=== PATIENT | male | born 1970 | race Caucasian/White ===

== ENCOUNTER 2016-03-19 17:42 | Emergency (ER) | payer MEDICARE | END 2016-03-19 19:42 | disposition home or self-care (01) | LOC: D.ER 17:42 | DX: M54.5 Low back pain (principal); M54.10 Radiculopathy, site unspecified; I50.9 Heart failure, unspecified; I10 Essential (primary) hypertension ==

== ENCOUNTER 2016-04-02 19:01 | Emergency (ER) | payer MEDICARE | END 2016-04-02 20:25 | disposition home or self-care (01) | LOC: D.ER 19:01 | DX: M54.5 Low back pain (principal); I10 Essential (primary) hypertension ==

== ENCOUNTER 2016-04-07 19:29 | Emergency (ER) | payer MEDICARE | END 2016-04-07 23:06 | disposition home or self-care (01) | LOC: D.ER 19:29 | DX: M54.5 Low back pain (principal); I10 Essential (primary) hypertension ==

== ENCOUNTER 2016-04-11 13:29 | Emergency (ER) | payer MEDICARE | END 2016-04-11 16:02 | disposition home or self-care (01) | LOC: D.ER 13:29 | DX: M54.5 Low back pain (principal); I10 Essential (primary) hypertension ==

== ENCOUNTER 2016-04-16 15:21 | Emergency (ER) | payer MEDICARE | END 2016-04-16 18:14 | disposition home or self-care (01) | LOC: D.ER 15:21 | DX: M54.5 Low back pain (principal); I10 Essential (primary) hypertension; E78.5 Hyperlipidemia, unspecified ==

== ENCOUNTER 2016-05-03 10:19 | Emergency (ER) | payer MEDICARE | END 2016-05-03 12:25 | disposition home or self-care (01) | LOC: D.ER 10:19 | DX: M54.30 Sciatica, unspecified side (principal); S39.012A Strain of muscle, fascia and tendon of lower back, initial encounter; X58.XXXA Exposure to other specified factors, initial encounter; Y93.9 Activity, unspecified; Y92.89 Other specified places as the place of occurrence of the external cause; M62.830 Muscle spasm of back; I10 Essential (primary) hypertension ==

== ENCOUNTER 2016-05-11 21:38 | Emergency (ER) | payer MEDICARE | END 2016-05-11 23:45 | disposition home or self-care (01) | LOC: D.ER 21:38 | DX: M54.5 Low back pain (principal); I10 Essential (primary) hypertension ==

== ENCOUNTER 2016-06-03 05:48 | Emergency (ER) | payer MEDICARE | END 2016-06-03 06:40 | disposition home or self-care (01) | LOC: D.ER 05:48 | DX: M54.16 Radiculopathy, lumbar region (principal); G89.29 Other chronic pain; I10 Essential (primary) hypertension ==

== ENCOUNTER 2016-06-03 12:05 | Emergency (ER) | payer MEDICARE | END 2016-06-03 15:36 | disposition home or self-care (01) | LOC: D.ER 12:05 | DX: M54.5 Low back pain (principal); G89.29 Other chronic pain; M54.40 Lumbago with sciatica, unspecified side; S39.012A Strain of muscle, fascia and tendon of lower back, initial encounter; M62.830 Muscle spasm of back; I10 Essential (primary) hypertension ==

== ENCOUNTER 2016-06-06 13:41 | Emergency (ER) | payer MEDICARE | END 2016-06-06 16:47 | disposition home or self-care (01) | LOC: D.ER 13:41 | DX: M54.5 Low back pain (principal); M54.10 Radiculopathy, site unspecified; I10 Essential (primary) hypertension; F17.200 Nicotine dependence, unspecified, uncomplicated ==

== ENCOUNTER 2016-06-11 11:42 | Emergency (ER) | payer MEDICARE | END 2016-06-11 14:10 | disposition home or self-care (01) | LOC: D.ER 11:42 | DX: M54.5 Low back pain (principal); M62.838 Other muscle spasm; S39.012A Strain of muscle, fascia and tendon of lower back, initial encounter; X58.XXXA Exposure to other specified factors, initial encounter; Y93.89 Activity, other specified; Y92.89 Other specified places as the place of occurrence of the external cause; I10 Essential (primary) hypertension ==

== ENCOUNTER 2016-06-23 17:21 | Emergency (ER) | payer MEDICARE | END 2016-06-23 18:24 | disposition home or self-care (01) | LOC: D.ER 17:21 | DX: M54.30 Sciatica, unspecified side (principal); S39.012A Strain of muscle, fascia and tendon of lower back, initial encounter; X58.XXXA Exposure to other specified factors, initial encounter; Y93.89 Activity, other specified; Y92.89 Other specified places as the place of occurrence of the external cause; M62.838 Other muscle spasm; I10 Essential (primary) hypertension; F17.200 Nicotine dependence, unspecified, uncomplicated ==

== ENCOUNTER 2016-07-04 22:49 | Emergency (ER) | payer MEDICARE | END 2016-07-05 00:50 | disposition home or self-care (01) | LOC: D.ER 22:49 | DX: M54.5 Low back pain (principal); I10 Essential (primary) hypertension ==

== ENCOUNTER 2016-08-04 11:22 | Emergency (ER) | payer MEDICARE | END 2016-08-04 12:48 | disposition home or self-care (01) | LOC: D.ER 11:22 | DX: M54.5 Low back pain (principal); M62.838 Other muscle spasm; S39.012A Strain of muscle, fascia and tendon of lower back, initial encounter; X58.XXXA Exposure to other specified factors, initial encounter ==

== ENCOUNTER 2016-08-11 15:55 | Emergency (ER) | payer MEDICARE | END 2016-08-11 17:50 | disposition home or self-care (01) | LOC: D.ER 15:55 | DX: M54.5 Low back pain (principal) ==

== ENCOUNTER 2016-08-27 10:02 | Emergency (ER) | payer MEDICARE | END 2016-08-27 10:44 | disposition home or self-care (01) | LOC: D.ER 10:02 | DX: G89.18 Other acute postprocedural pain (principal); M62.838 Other muscle spasm; Z76.0 Encounter for issue of repeat prescription; I10 Essential (primary) hypertension ==

== ENCOUNTER 2016-10-05 17:11 | Emergency (ER) | payer MEDICARE | END 2016-10-05 21:05 | disposition home or self-care (01) | LOC: D.ER 17:11 | DX: M54.5 Low back pain (principal) ==

== ENCOUNTER 2016-12-15 21:44 | Emergency (ER) | payer MEDICARE | END 2016-12-15 23:24 | disposition home or self-care (01) | LOC: D.ER 21:44 | DX: M54.5 Low back pain (principal) ==

== ENCOUNTER 2016-12-16 21:49 | Emergency (ER) | payer MEDICARE | END 2016-12-16 22:57 | disposition home or self-care (01) | LOC: D.ER 21:49 | DX: M54.5 Low back pain (principal); I10 Essential (primary) hypertension; F17.200 Nicotine dependence, unspecified, uncomplicated ==

== ENCOUNTER 2016-12-17 21:24 | Emergency (ER) | payer MEDICARE | END 2016-12-17 22:24 | disposition home or self-care (01) | LOC: D.ER 21:24 | DX: M54.5 Low back pain (principal); S39.012A Strain of muscle, fascia and tendon of lower back, initial encounter; X50.0XXA Overexertion from strenuous movement or load, initial encounter; Y93.89 Activity, other specified; Y92.029 Unspecified place in mobile home as the place of occurrence of the external cause; M62.838 Other muscle spasm; I10 Essential (primary) hypertension ==

== ENCOUNTER 2016-12-21 21:51 | Emergency (ER) | payer MEDICARE | END 2016-12-21 22:41 | disposition home or self-care (01) | LOC: D.ER 21:51 | DX: M54.5 Low back pain (principal); S39.012A Strain of muscle, fascia and tendon of lower back, initial encounter; X58.XXXA Exposure to other specified factors, initial encounter; Y93.89 Activity, other specified; Y92.029 Unspecified place in mobile home as the place of occurrence of the external cause; I10 Essential (primary) hypertension ==

== ENCOUNTER 2017-03-19 12:28 | Emergency (ER) | payer MEDICARE | END 2017-03-19 14:16 | disposition home or self-care (01) | LOC: D.ER 12:28 | DX: S39.012A Strain of muscle, fascia and tendon of lower back, initial encounter (principal); X58.XXXA Exposure to other specified factors, initial encounter; Y93.89 Activity, other specified; Y92.89 Other specified places as the place of occurrence of the external cause; M54.30 Sciatica, unspecified side; M54.5 Low back pain; I10 Essential (primary) hypertension; F17.200 Nicotine dependence, unspecified, uncomplicated ==

== ENCOUNTER 2017-06-11 08:27 | Emergency (ER) | payer MEDICARE ==
[2017-06-11 09:46] LABS: APPEARANCE CLEAR (CLEAR); BILIRUBIN NEGATIVE (NEGATIVE); COLOR YELLOW (YELLOW); GLUCOSE NEGATIVE (NEGATIVE); KETONE NEGATIVE (NEGATIVE); NITRITE NEGATIVE (NEGATIVE); PROTEIN NEGATIVE (NEGATIVE); SPECIFIC GRAVITY 1.015 (1.005-1.020); UROBILINOGEN NORMAL (NORMAL)
== END 2017-06-11 10:53 | disposition home or self-care (01) ==
LOC: D.ER 08:27
PROVIDERS: Emergency Medicine
DX: M54.5 Low back pain (principal); I10 Essential (primary) hypertension; F17.200 Nicotine dependence, unspecified, uncomplicated

== ENCOUNTER 2017-06-28 20:56 | Emergency (ER) | payer MEDICARE | END 2017-06-28 22:04 | disposition home or self-care (01) | LOC: D.ER 20:56 | DX: S39.012A Strain of muscle, fascia and tendon of lower back, initial encounter (principal); W18.30XA Fall on same level, unspecified, initial encounter; Y93.9 Activity, unspecified; Y92.9 Unspecified place or not applicable; M62.838 Other muscle spasm; I10 Essential (primary) hypertension ==

== ENCOUNTER 2017-07-07 20:28 | Emergency (ER) | payer MEDICARE | END 2017-07-07 22:06 | disposition home or self-care (01) | LOC: D.ER 20:28 | DX: M54.5 Low back pain (principal); I10 Essential (primary) hypertension ==

== ENCOUNTER 2017-07-09 08:16 | Emergency (ER) | payer MEDICARE | END 2017-07-09 08:50 | disposition home or self-care (01) | LOC: D.ER 08:16 | DX: M51.36 Other intervertebral disc degeneration, lumbar region (principal) ==

== ENCOUNTER 2017-07-10 10:15 | Emergency (ER) | payer MEDICARE | END 2017-07-10 10:48 | disposition home or self-care (01) | LOC: D.ER 10:15 | DX: M54.5 Low back pain (principal); F17.200 Nicotine dependence, unspecified, uncomplicated ==

== ENCOUNTER 2017-07-10 19:19 | Emergency (ER) | payer MEDICARE | END 2017-07-10 20:22 | disposition home or self-care (01) | LOC: D.ER 19:19 | DX: M54.5 Low back pain (principal); F17.200 Nicotine dependence, unspecified, uncomplicated ==

== ENCOUNTER 2017-08-06 11:54 | Emergency (ER) | payer MEDICARE ==
[~2017-08-06] VITALS: Ht 170.2 cm; Wt 86.4 kg
[2017-08-06 12:02] VITALS: Ht 170.2 cm; Wt 86.4 kg
[2017-08-06 14:27] VITALS: BP 142/98
== END 2017-08-06 14:28 | disposition home or self-care (01) ==
LOC: D.ER 11:54
DX: M54.5 Low back pain (principal); M51.36 Other intervertebral disc degeneration, lumbar region; F17.200 Nicotine dependence, unspecified, uncomplicated

== ENCOUNTER 2017-08-09 12:29 | Emergency (ER) | payer MEDICARE ==
[~2017-08-09] VITALS: Ht 170.2 cm; Wt 86.4 kg
[2017-08-09 12:38] VITALS: Ht 170.2 cm; Wt 86.4 kg
[2017-08-09 15:49] VITALS: BP 120/68
== END 2017-08-09 15:51 | disposition home or self-care (01) ==
LOC: D.ER 12:29
DX: M54.16 Radiculopathy, lumbar region (principal); F17.200 Nicotine dependence, unspecified, uncomplicated

== ENCOUNTER 2017-08-16 15:31 | Emergency (ER) | payer MEDICARE ==
[~2017-08-16] VITALS: Ht 170.2 cm; Wt 86.4 kg
[2017-08-16 16:53] VITALS: Ht 170.2 cm; Wt 86.4 kg
[2017-08-16] MEDS ORDERED: ZANAFLEX4 MG PO (17:04)
[2017-08-16] MEDS ORDERED: VOLTAREN75 MG PO (20:31)
[2017-08-16] MEDS ORDERED: ROBAXIN-750750 MG PO (20:31)
[2017-08-16 20:57] VITALS: BP 111/66
== END 2017-08-16 20:58 | disposition home or self-care (01) ==
LOC: D.ER 15:31
DX: M54.5 Low back pain (principal); M62.838 Other muscle spasm

== ENCOUNTER 2017-09-05 15:46 | Emergency (ER) | payer MEDICARE ==
[~2017-09-05] VITALS: Ht 170.2 cm; Wt 86.4 kg
[~2017-09-05 15:46] MED LIST: ROBAXIN-750750 MG PO; VOLTAREN75 MG PO; ZANAFLEX4 MG PO
[2017-09-05 16:16] VITALS: BP 114/82; Ht 170.2 cm; Wt 86.4 kg
== END 2017-09-05 23:35 | disposition left against medical advice (07) ==
LOC: D.ER 15:46
DX: M54.5 Low back pain (principal); M62.838 Other muscle spasm

== ENCOUNTER 2017-09-06 10:29 | Emergency (ER) | payer MEDICARE ==
[~2017-09-06] VITALS: Ht 170.2 cm; Wt 86.4 kg
[2017-09-06 10:34] VITALS: Ht 170.2 cm; Wt 86.4 kg
[2017-09-06 13:07] VITALS: BP 129/94
== END 2017-09-06 13:07 | disposition home or self-care (01) ==
LOC: D.ER 10:29
DX: M54.5 Low back pain (principal); M62.830 Muscle spasm of back

== ENCOUNTER 2017-09-08 06:16 | Emergency (ER) | payer MEDICARE ==
[~2017-09-08] VITALS: Ht 170.2 cm; Wt 86.4 kg
[2017-09-08 06:20] VITALS: Ht 170.2 cm; Wt 86.4 kg
[2017-09-08] MEDS ORDERED: CYCLOBENZAPRINE10 MG PO (07:20)
[2017-09-08 08:22] VITALS: BP 149/102
== END 2017-09-08 08:12 | disposition home or self-care (01) ==
LOC: D.ER 06:16
DX: M51.36 Other intervertebral disc degeneration, lumbar region (principal); M48.061 Spinal stenosis, lumbar region without neurogenic claudication

== ENCOUNTER 2017-09-16 07:45 | Outpatient (CLI) | payer MEDICARE ==
[~2017-09-16] VITALS: Ht 170.2 cm; Wt 86.4 kg
--- NOTE | ~2017-09-16 | HEMODYNAMI ---
PATIENT:DARIEL KIRKPATRICK MEDICAL RECORD: [id number] : 72 LOCATION:[facility] ADMISSION DATE: 09/16/17 Generatedon:09/16/201714:03 Patient name: DARIEL KIRKPATRICK Patient #: [id number] SSN: : 1970 Date of study: 09/16/2017 Page: Of Hemodynamic Procedure Report Patient Data Patient Demographics Procedure consent was obtained First Name: DARIEL Gender: Male Last Name: KAYA : 1970 [facility] Initial: O Age: 47 year(s) Patient #: [id number] Race: Additional ID: [id number] Contact details Address: [facility] State: [place] City: [place] Zip code: [address] Past Medical History Allergies: No known allergies Admission Admission Data Admission Date: 09/16/2017 Admission Time: 7:45 Lab Results Lab Result Date: 09/16/2017 Lab Result Time: 0:00 Biochemistry Name Units Result Min Max BUN mg/dl 17 --(---*)-- 7 18 Creatinine mg/dl 1.2 --(---*)-- 0.6 1.3 CBC Name Units Result Min Max Hemoglobin g/dl 15.7 --(--*-)-- 13.5 17.5 Procedure Procedure Types Cath Procedure Diagnostic Procedure [facility] w/Coronaries Procedure Description Procedure Date Procedure Date: 09/16/2017 Procedure Start Time: 13:53 Procedure End Time: 14:01 Procedure Staff Name Function Lazarus Weller MD Performing Physician Jesús Weeks RT Monitor Unique Santa RN Nurse Misha Hirsch RT Scrub Procedure Data Cath Procedure Fluoroscopy Diagnostic fluoroscopy Total fluoroscopy Time: 0.6 time: 0.6 min min Diagnostic fluoroscopy Total fluoroscopy dose: dose: 142.48 mGy 142.48 mGy Contrast Material Contrast Material Type Amount (ml) Isovue 300 47 Entry Location Entry Primary Successful Side Size Upsize Upsize Entry Closure Succes sful Closure Location (Fr) 1 (Fr) 2 (Fr) Remarks Device Remarks Femoral Right 5 Fr Exoseal artery Estimated blood loss: 10 ml Diagnostic catheters Device Type Used For End Catheter Placement MULTIPACK Pigtail 5 Fr Procedure catheter MULTIPACK JL 4.0 5Fr Procedure catheter MULTIPACK 3DRC 5Fr Procedure catheter Procedure Medications Medication Administration Route Dosage 0.9% NaCl I.V. 100 ml/hr Lidocaine 2% added to field 20 Heparin Flush Bag added to field 2 bags (1000units/500ml NS) Oxygen NC 2 l/min Versed I.V. 2 mg Fentanyl I.V. 100 mcg Lopressor I.V. 5 mg Versed I.V. 2 mg Fentanyl I.V. 100 mcg Versed I.V. 2 mg Fentanyl I.V. 100 mcg Hemodynamics Rest HGB: 15.7 (g/dl) Heart Rate: 116 (bpm) Pressure Samples Time Site Value (mmHg) Purpose Heart Use Rate(bpm) 13:54 LV 161/24,25 Snapshot 109 Snapshots Pre Cath Intra NCS Post Cath Vital Signs Time Heart Resp SPO2 etCO2 NIBP (mmHg) Rhythm Pain Sedation Rate (ipm) (%) (mmHg) Status Level (bpm) 13:24:19 116 15 99 32.3 160/114(134) NSR 0 (11) 10(A) , No pain 13:28:48 115 16 100 33.8 161/115(131) NSR 0 (11) 10(A) , No pain 13:33:16 114 17 99 37.6 160/111(123) NSR 0 (11) 10(A) , No pain 13:37:38 115 19 99 36.8 158/107(118) NSR 0 (11) 10(A) , No pain 13:42:07 113 18 98 42.9 167/113(138) NSR 0 (11) 10(A) , No pain 13:46:33 117 19 98 43.7 150/107(127) NSR 0 (11) 10(A) , No pain 13:50:57 125 17 98 43.7 160/110(116) NSR 0 (11) 9(A) , No pain 13:55:25 114 108 99 43.6 157/106(113) NSR 0 (11) 9(A) , No pain 13:59:52 103 17 99 39.8 152/102(125) NSR 0 (11) 10(A) , No pain Medications Time Medication Route Dose Verified Delivered Reason Notes Eff ectiveness by by 13:23:05 0.9% NaCl I.V. 100 Unique Unique used for ml/hr Kiet Kiet rapid extractor operator RN 13:23:16 Lidocaine 2% added 20ml Unique Unique for local to vial Kiet Kiet anesthetic field RN RN 13:23:26 Heparin Flush added 2 Unique Unique used for Bag to bags Kiet Kiet procedure (1000units/500ml field RN RN NS) 13:23:36 Oxygen NC 2 Unique Unique used for l/min Kiet Kiet rapid extractor operator RN 13:48:07 Versed I.V. 2 mg Lazarus Unique for Nithin BARBOSA Kiet sedation RN 13:48:17 Fentanyl I.V. 100 Lazarus Unique for mcg Nithin BARBOSA Kiet sedation RN 13:51:11 Versed I.V. 2 mg Lazarus Unique for Nithin BARBOSA Kiet sedation RN 13:51:16 Fentanyl I.V. 100 Lazarus Unique for mcg Nithin BARBOSA Kiet sedation RN 13:55:02 Lopressor I.V. 5 mg Lazarus Unique used for Nithin BARBOSA Kiet rapid extractor operator 13:55:50 Versed I.V. 2 mg Lazarus Unique for Nithin BARBOSA Kiet sedation RN 13:55:55 Fentanyl I.V. 100 Lazarus Unique for mcg Nithin BARBOSA Kiet sedation mathematical scientist Log Time Note 13:04:05 Informed consent obtained and on chart 13:04:28 Diagnostic Cath Status : Elective 13:05:07 Jesús Weeks RT(R) (CV) sent for patient. Start room use. 13:05:08 Time tracking: Regular hours (M-F 7:00 - 5:00) 13:05:14 Plan of Care:Hemodynamics will remain stable., Cardiac rhythm will remain stable., Comfort level will be maintained., Respiratory function will remain adequate., Patient/ family verbilizes understanding of procedure., Procedure tolerated without complication., Recovers from procedure without complications.. 13:15:19 Patient received from ED to CCL 3 Alert and oriented. Tansferred to table in Supine position. 13:15:20 Warm blankets applied, and august hugger turned on for patient comfort. 13:15:21 Correct patient and procedure confirmed by team. 13:15:22 ECG and BP/O2 sat monitors applied to patient. 13:15:23 Full Disclosure recording started 13:22:54 Vital chart was started 13:23:05 0.9% NaCl 100 ml/hr I.V. was administered by Unique Santa RN; used for procedure; 13:23:16 Lidocaine 2% 20ml vial added to field was administered by Unique Santa RN; for local anesthetic; 13:23:26 Heparin Flush Bag (1000units/500ml NS) 2 bags added to field was administered by Unique Santa RN; used for procedure; 13:23:36 Oxygen 2 l/min NC was administered by Unique Santa RN; used for procedure; 13:25:11 Baseline sample Acquired. 13:25:23 Rhythm: sinus tachycardia 13:25:45 H&P Date Dictated: 09/16/2017 ER History on chart.. 13:25:48 Pre-procedure instructions explained to patient. 13:25:54 Pre-op teaching completed and patient verbalized understanding. 13:26:09 Family unavailable. 13:26:27 Patient NPO since Breakfast. 13:26:49 Patient allergic to No known allergies 13:26:53 Is the patient allergic to Iodine/contrast media? No. 13:26:56 Patient diabetic? No. 13:26:57 ----Pre-sedation anethsthesia assessment.---- 13:27:00 Previous problem with sedation/anesthesia? No ? 13:27:02 Snore? Yes 13:27:03 Sleep apnea? No 13:27:05 Deviated septum? No 13:27:06 Opens mouth fully? Yes 13:27:07 Sticks out tongue? Yes 13:27:09 Airway obstruction? No ? 13:27:14 Dentures? No ? 13:27:18 Pre procedure: right dorsailis pedis pulse 2+ Normal; easily identifiable; not easily obliterated 13:27:24 Modified Sylvain's test Ulnar > 7 seconds. 13:27:27 Patient pain scale 0/10 ?. 13:27:39 IV patent on arrival in left forearm with 0.9% NaCl at KVO. 13:28:08 Lab Result : BUN 17 mg/dl 13:28:08 Lab Result : Hemoglobin 15.7 g/dl 13:28:08 Lab Result : Creatinine 1.2 mg/dl 13:28:14 Right groin area was prepped with chlora-prep and draped in sterile fashion 13:28:15 Alarms reviewed by R. N. 13:28:16 Sharps counted by scrub and verified by R.N. 13:28:20 Use device set Femoral Dx 13:28:22 ACIST Syringe (20329) opened to sterile field. 13:28:23 Bag Decanter (2002S) opened to sterile field. 13:28:24 Medline Cath Pack ([id number]) opened to sterile field. 13:28:25 DIAGNOSTIC WIRE .035 260cm J wire (775913) opened to sterile field. 13:28:27 ACIST Hand Control (65158) opened to sterile field. 13:28:27 ACIST Manifold (69031) opened to sterile field. 13:28:28 DIAGNOSTIC Multipack 5Fr catheter set ([id number]) opened to sterile field. 13:28:29 Tegaderm 4 x 4 (1626W) opened to sterile field. 13:28:31 SHEATH Prelude 5Fr 0.035 ([id number]-64-035) opened to sterile field. 13:33:14 Zero performed for pressure channel P1 13:46:54 Physician arrived 13:46:54 --------ALL STOP TIME OUT------ 13:46:55 Final Timeout: patient, procedure, and site verified with staff and physician. All members of the team are in agreement. 13:46:57 Right groin site verified by team. 13:47:00 Physical assessment completed. ASA score P 2 - A patient with mild systemic disease as per Lazarus Weller MD. 13:47:08 Sedation plan: IV Moderate Sedation Medication:Versed, Fentanyl 13:48:07 Versed 2 mg I.V. was administered by Unique Santa RN; for sedation; 13:48:17 Fentanyl 100 mcg I.V. was administered by Unique Santa RN; for sedation; 13:51:11 Versed 2 mg I.V. was administered by Unique Santa RN; for sedation; 13:51:16 Fentanyl 100 mcg I.V. was administered by Unique Santa RN; for sedation; 13:52:55 Procedure started. 13:53:00 Local anesthetic to right femoral artery with Lidocaine 2% by Lazarus Weller MD.INITIAL ACCESS ONLY 13:53:50 A 5 Fr sheath was inserted into the Right Femoral artery 13:54:30 A MULTIPACK Pigtail 5 Fr catheter was advanced over the wire and used for Procedure. 13:54:35 LV hemodynamics recorded. 13:54:37 LV gram done using BLANC 13:54:43 EF : 35 % 13:55:02 Lopressor 5 mg I.V. was administered by Unique Santa RN; used for procedure; 13:55:13 Catheter removed. 13:55:19 A MULTIPACK JL 4.0 5Fr catheter was advanced over the wire and used for Procedure. 13:55:50 Versed 2 mg I.V. was administered by Unique Santa RN; for sedation; 13:55:55 Fentanyl 100 mcg I.V. was administered by Unique Santa RN; for sedation; 13:56:20 LCA angiography performed. 13:56:22 Catheter removed. 13:56:32 A MULTIPACK 3DRC 5Fr catheter was advanced over the wire and used for Procedure. 13:56:35 RCA angiography performed. 13:56:36 Catheter removed. 13:56:39 EXOSEAL 5Fr (EX500) opened to sterile field. 13:56:53 Sheath removed intact; hemostasis achieved with Exoseal to the Right Femoral artery. 13:56:56 Procedure ended.(Physican Out) 13:57:16 Fluoroscopy time 00.60 minutes. 13:57:23 Fluoroscopy dose: 142.48 mGy 13:57:23 Flurop Dose total: 142.48 13:57:30 Contrast amount:Isovue 300 47ml. 13:57:39 Sharps counted by scrub and verified by R.N. 13:57:43 Insertion/operative site no bleeding no hematoma. 13:57:47 Post-op/insertion site Right Femoral artery dressed using a 4 x 4 and Tegaderm. 13:57:53 Post right femoral artery:stable 13:59:42 Post Procedure Pulses reassessed and unchanged 13:59:46 Post-procedure physical assessment completed. ASA score P 2 - A patient with mild systemic disease as per Lazarus Weller MD. 13:59:52 Post procedure rhythm: sinus tachycardia 14:00:00 Estimated blood loss: 10 ml 14:00:47 Post procedure instruction explained to patient.Patient verbalizes understanding. 14:00:49 Patient needs reinforcement of post procedure teaching. 14:00:50 Procedure and supply charges have been captured, reviewed, submitted and are correct. 14:00:58 Vital chart was stopped 14:01:00 See physician's report for complete and final results. 14:01:05 Report given to Pre/Post Procedure Room. 14:01:37 Patient transfered to Pre/Post Procedure Room with Stretcher. 14:01:40 Procedure ended. 14:01:40 Full Disclosure recording stopped 14:01:51 End room use (Document Last) Device Usage Item Name Manufacture Quantity Catalog Number Hospital Part Current M inimal Lot# / Charge Number Stock Stock Serial# Code ACIST Syringe Acist 1 18077 359914 257439 661183 2 0 (73128) [employer] Bag Decanter Microtek 1 2001S 162889 39724 927409 5 () Medical Inc. Medline Cath Cardinal 1 [id number] 440712 75541 344346 5 Pack Health ([id number]) DIAGNOSTIC WIRE [facility] 1 722311 786909 306339 609461 3 0 .035 260cm J wire (654919) ACIST Hand Acist 1 88726 848982 486016 905531 5 Control (44311) [employer] Inc ACIST Manifold Acist 1 48513 979101 278621 110130 5 (33521) [employer] Inc DIAGNOSTIC Cardinal 1 [id number] 509860 17548 965127 3 0 Multipack 5Fr Health catheter set (BT6590) Tegaderm 4 x 4 3M 1 1626W 287994 664521 445916 5 (1626W) SHEATH Prelude Merit 1 [id number]-5I-00-035 432832 069690 098501 5 5Fr 0.035 Medical ([id number]) MULTIPACK Cardinal 1 637588 5 Pigtail 5 Fr Health catheter MULTIPACK JL Cardinal 1 360180 5 4.0 5Fr Health catheter MULTIPACK 3DRC Cardinal 1 691816 5 5Fr catheter Health EXOSEAL 5Fr Cardinal 1 EX500 412421 362324 645047 1 0 (EX500) Health Signature Audit [place] Stage Time Signature Unsigned Intra-Procedure 09/16/2017 Jesús Weeks 2:03:47 PM RT(R) (CV) Signatures Monitor : Jesús Weeks RT Signature : Date : Time : [address] [place] [address]
--- NOTE | ~2017-09-16 | OP ---
PATIENT NAME: DARIEL KIRKPATRICK MEDICAL RECORD: [id number] :72 LOCATION:[facility] ADMISSION DATE: SURGEON: BROOKLYN GALEANA MD DATE OF OPERATION: 09/16/2017 PROCEDURES: 1. Left heart catheterization. 2. Selective coronary angiography. 3. Left ventriculogram. INDICATION: Chest pain compatible with angina. PROCEDURE IN DETAIL: After informed consent was obtained and after a detailed description of risks, benefits as well as alternative therapies, the patient elected to proceed with angiogram and heart catheterization. The right radial area was prepped and draped in normal sterile fashion. Right radial artery was cannulated via modified Seldinger technique with placement of 5-Serbian sheath. All catheters exchanged through this sheath. FINDINGS: The left ventriculogram was performed in a standard 30-degree BLANC view, reveals good cardiac wall motion throughout all segments. Overall ejection fraction estimated 60%. SELECTIVE CORONARY ANGIOGRAPHY: Left main, left anterior descending, left circumflex, right coronary artery are smooth-walled vessels with no angiographic evidence of coronary artery disease. OVERALL IMPRESSION: 1. No angiographic evidence of coronary artery disease. 2. Normal left heart pressures. 3. Normal left ventricular systolic function. Chest pain is noncardiac in etiology. No further cardiac workup needs to be ascertained. TRANSINT:[id number] Voice Confirmation ID: [id number] DOCUMENT ID: [id number] BROOKLYN GALEANA MD at 1713 CC: [id number] DICTATION DATE: 09/26/17 0941 NON LICENSED OPERATOR: 09/26/17 1151 DEP CLI 09/16/17 [place] [id number] [place] [address]
--- NOTE | ~2017-09-16 | CN ---
PATIENT NAME:DARIEL ARCEO MEDICAL RECORD: [id number] : 72 LOCATION:D.[facility] ADMIT DATE: ACCOUNT: [id number] CONSULTING PHYSICIAN: BROOKLYN GALEANA MD REFERRING PHYSICIAN: BROOKLYN GALEANA MD DATE OF CONSULTATION: 09/16/2017 DIAGNOSES: 1. Angina. 2. Abnormal stress test. 3. History of cardiomyopathy. HISTORY OF PRESENT ILLNESS: Mr. Arceo presents to the Emergency Room with ongoing chest pain. He presented to [facility] yesterday with similar, had a stress test, was told it is abnormal, but was told that they would not admit him. It seems that he got in an argument with them over paperwork for FMLA from his work area. He continued to have chest pain, now presents to our institution. He has a history of a cardiomyopathy, ejection fraction 35% number of years ago and then his ejection fraction returned to normal. He stopped all his medications from the standpoint of the cardiomyopathy when it returned to normal. He is currently on no medications. PHYSICAL EXAMINATION: GENERAL APPEARANCE: Well-nourished, well-developed, appears stated age. Level of distress, comfortable. PSYCHIATRIC: Mental status, alert, normal affect. Orientation, oriented to time, place and person. EYES: Lids and conjunctiva, noninjected. No discharge, no pallor. ENT: Lips, teeth, gums, normal dentition. Oropharynx, no cyanosis, no pallor. NECK: Carotid arteries, bilateral normal upstroke, no bruits, no thrills. JUGULAR VEINS: No jugular venous pressure or distention. CERVICAL LYMPH NODES: Nontender, nonenlarged. THYROID: Not enlarged. Nontender. No nodules. LUNGS: Respiratory effort, unlabored. CHEST: Normal curvature. No thoracic deformity. No chest wall tenderness. Percussion, resonant. Auscultation, clear. No wheezes, no rales, no rhonchi. CARDIOVASCULAR: Precordial exam, nondisplaced. No heaves or pericardial thrills. Rate and rhythm, regular. Heart sounds, normal S1, normal S2. No S3, no gallop, no rub. Systolic murmur, not heard. Diastolic murmur, not heard. EXTREMITIES: No cyanosis, no edema. Peripheral pulses, full and equal in all extremities, except as noted. No bruits appreciated. ABDOMEN: Soft, nondistended. Normal aorta. No bruit. Nontender. No masses. Liver, nontender, no hepatomegaly. Spleen, nontender, no splenomegaly. MUSCULOSKELETAL: No joint tenderness. No joint swelling. No erythema. NEUROLOGICAL: Normal gait, normal strength, normal tone. SKIN: Warm and dry. OVERALL IMPRESSION: Chest pain, very well may be secondary to recurrent cardiomyopathy. We will proceed with coronary angiography. Further care depends upon findings of the angiography. TRANSINT:[id number] Voice Confirmation ID: [id number] DOCUMENT ID: [id number] CONSULT REPORT [id number] DARIEL ARCEO, BROOKLYN BARBOSA at 1816 CC: [id number] DICTATION DATE: 09/16/17 1050 NATURAL RESOURCES ENGINEER: 09/16/17 1100 [address] [facility] [address] [place] [address]
[~2017-09-16 07:45] MED LIST changes: +CYCLOBENZAPRINE10 MG PO
[2017-09-16 07:51] VITALS: BP 156/106; Ht 170.2 cm; Wt 86.4 kg
[2017-09-16 08:08] LABS: BASOPHILS 0.3 % (0-2); EOSINOPHILS 3.6 % (0-7); HEMATOCRIT 47.1 % (42.0-54.0); HEMOGLOBIN 15.7 g/dL (13.5-17.5); IMMATURE GRANULOCYTES 0.4 % (0-5); LYMPHOCYTES 25.2 % (15-50); MCH 29.5 pg (26.0-34.0); MCHC 33.3 g/dL (31.0-37.0); MCV 88.4 fL (80.0-100.0); MEAN PLATELET VOLUME 9.6 fL (7.4-10.4); MONOCYTES 8.1 % (2-11); NEUTROPHILS 62.4 % (40-80); PLATELET COUNT 222 10x3/uL (130-400); RBC 5.33 10x6/uL (4.20-6.10); RDW 14.3 % (11.5-14.5); WBC 7.3 10x3/uL (4.8-10.8)
[2017-09-16 08:21] LABS: APTT 24.6 SECONDS (22.8-39.4); INR 0.95 (0.85-1.17); PROTIME 12.3 SECONDS (11.6-15.0)
[2017-09-16 08:23] LABS: D-DIMER-QUANTITATIVE 0.3 ug/mLFEU (0.20-0.54)
[2017-09-16 08:26] LABS: ALBUMIN 3.2 g/dL (3.4-5.0); ALKALINE PHOSPHATASE 68 U/L (46-116); ALT (SGPT) 38 U/L (10-68); BILIRUBIN - TOTAL 0.53 mg/dL (0.2-1.3); CALC OSMOLALITY 279 mosm/kg (275-300); CALCIUM 8.7 mg/dL (8.5-10.1); CARBON DIOXIDE 27.3 mmol/L (21.0-32.0); CHLORIDE - SERUM 105 mmol/L (98-107); CREATININE - SERUM 1.2 mg/dL (0.6-1.3); GLUCOSE 89 mg/dL (74-106); POTASSIUM - SERUM 4.4 mmol/L (3.5-5.1); PROTEIN - SERUM 7.2 g/dL (6.4-8.2); SODIUM 140 mmol/L (136-145); UREA NITROGEN 17 mg/dL (7-18); eGFR NON AFRICAN AMERICAN 69 mL/min (90-120)
[2017-09-16 08:38] LABS: CKMB 1.8 U/L (0.0-3.6); CREATINE KINASE 579 UL (21-232); MAGNESIUM - SERUM 2.2 mg/dL (1.8-2.4)
[2017-09-16 08:41] LABS: TROPONIN-I < 0.017 ng/mL (0.000-0.060)
== END 2017-09-16 17:00 | disposition home or self-care (01) ==
LOC: D.ER 07:45 → D.OPS 07:45 → EDSTATUS 12:00 → D.OPS 17:00
PROVIDERS: Family Medicine
DX: I20.9 Angina pectoris, unspecified (principal); R94.30 Abnormal result of cardiovascular function study, unspecified; Z01.812 Encounter for preprocedural laboratory examination

== ENCOUNTER 2017-10-26 15:25 | Emergency (ER) | payer MEDICARE ==
[~2017-10-26] VITALS: Ht 170.2 cm; Wt 86.4 kg
[2017-10-26 15:32] VITALS: BP 134/98; Ht 170.2 cm; Wt 86.4 kg
== END 2017-10-26 19:27 | disposition home or self-care (01) ==
LOC: D.ER 15:25
DX: M54.5 Low back pain (principal)

== ENCOUNTER 2017-12-04 18:55 | Emergency (ER) | payer MEDICARE ==
[~2017-12-04] VITALS: Ht 170.2 cm; Wt 95.5 kg
[2017-12-04 19:04] VITALS: Ht 170.2 cm; Wt 95.5 kg
[2017-12-04 20:59] VITALS: BP 136/89
== END 2017-12-04 21:00 | disposition home or self-care (01) ==
LOC: D.ER 18:55
DX: M54.5 Low back pain (principal); I50.9 Heart failure, unspecified

== ENCOUNTER 2017-12-06 09:08 | Emergency (ER) | payer MEDICARE ==
[~2017-12-06] VITALS: Ht 170.2 cm; Wt 90.9 kg
[2017-12-06 09:10] VITALS: Ht 170.2 cm; Wt 90.9 kg
[2017-12-06] MEDS ORDERED: STERAPRED DS 1210 MG PO (10:08)
[2017-12-06 10:21] VITALS: BP 157/107
== END 2017-12-06 10:16 | disposition home or self-care (01) ==
LOC: D.ER 09:08
DX: M54.5 Low back pain (principal); I50.9 Heart failure, unspecified; F17.200 Nicotine dependence, unspecified, uncomplicated

== ENCOUNTER 2018-02-05 11:12 | Emergency (ER) | payer MEDICARE ==
[~2018-02-05] VITALS: Ht 170.2 cm; Wt 90.9 kg
[~2018-02-05 11:12] MED LIST changes: +STERAPRED DS 1210 MG PO
[2018-02-05 11:19] VITALS: Ht 170.2 cm; Wt 90.9 kg
[2018-02-05 12:12] LABS: BASOPHILS 0.2 % (0-2); EOSINOPHILS 1.5 % (0-7); HEMATOCRIT 46.2 % (42.0-54.0); HEMOGLOBIN 15.5 g/dL (13.5-17.5); IMMATURE GRANULOCYTES 0.5 % (0-5); LYMPHOCYTES 17.6 % (15-50); MCH 28.9 pg (26.0-34.0); MCHC 33.5 g/dL (31.0-37.0); MCV 86.2 fL (80.0-100.0); MEAN PLATELET VOLUME 10.1 fL (7.4-10.4); NEUTROPHILS 71.2 % (40-80); PLATELET COUNT 238 10x3/uL (130-400); RBC 5.36 10x6/uL (4.20-6.10); RDW 13.2 % (11.5-14.5); WBC 12.6 10x3/uL (4.8-10.8)
[2018-02-05 12:50] LABS: ALBUMIN 3.4 g/dL (3.4-5.0); ANION GAP 17.6 mmol/L (8-16); BILIRUBIN - TOTAL 0.3 mg/dL (0.2-1.3); CALCIUM 8.9 mg/dL (8.5-10.1); CARBON DIOXIDE 23.5 mmol/L (21.0-32.0); CREATININE - SERUM 1.4 mg/dL (0.6-1.3); POTASSIUM - SERUM 4.1 mmol/L (3.5-5.1); PROTEIN - SERUM 7.1 g/dL (6.4-8.2)
[2018-02-05] MEDS ORDERED: ULTRAM50 MG PO (15:52)
[2018-02-05 16:07] VITALS: BP 132/86
== END 2018-02-05 16:08 | disposition home or self-care (01) ==
LOC: D.ER 11:12
PROVIDERS: Emergency Medicine
DX: R14.0 Abdominal distension (gaseous) (principal); K59.00 Constipation, unspecified; I50.9 Heart failure, unspecified

== ENCOUNTER 2018-02-15 09:36 | Emergency (ER) | payer MEDICARE ==
[~2018-02-15] VITALS: Ht 170.2 cm; Wt 90.9 kg
[~2018-02-15 09:36] MED LIST changes: +ULTRAM50 MG PO
[2018-02-15 09:45] VITALS: Ht 170.2 cm; Wt 90.9 kg
[2018-02-15] MEDS ORDERED: VOLTAREN75 MG PO (13:52)
[2018-02-15] MEDS ORDERED: ZANAFLEX4 MG PO (13:52)
[2018-02-15 14:03] VITALS: BP 138/89
== END 2018-02-15 14:04 | disposition home or self-care (01) ==
LOC: D.ER 09:36
DX: M54.5 Low back pain (principal)

== ENCOUNTER 2018-02-20 20:37 | Emergency (ER) | payer MEDICARE ==
[~2018-02-20] VITALS: Ht 170.2 cm; Wt 90.9 kg
[2018-02-20 20:59] VITALS: Ht 170.2 cm; Wt 90.9 kg
[2018-02-20] MEDS ORDERED: TORADOL10 MG PO (21:57)
[2018-02-20 22:25] VITALS: BP 149/89
== END 2018-02-20 22:25 | disposition home or self-care (01) ==
LOC: D.ER 20:37
DX: M54.5 Low back pain (principal)

== ENCOUNTER 2018-02-21 20:22 | Emergency (ER) | payer MEDICARE ==
[~2018-02-21] VITALS: Ht 170.2 cm; Wt 90.9 kg
[~2018-02-21 20:22] MED LIST changes: +TORADOL10 MG PO
[2018-02-21 20:46] VITALS: Ht 170.2 cm; Wt 90.9 kg
[2018-02-21 23:10] VITALS: BP 138/103
== END 2018-02-21 23:10 | disposition home or self-care (01) ==
LOC: D.ER 20:22
DX: M54.5 Low back pain (principal)

== ENCOUNTER 2018-03-29 16:24 | Emergency (ER) | payer MEDICARE ==
[~2018-03-29] VITALS: Ht 170.2 cm; Wt 90.9 kg
[2018-03-29 16:30] VITALS: Ht 170.2 cm; Wt 90.9 kg
[2018-03-29] MEDS ORDERED: VOLTAREN75 MG PO (20:50)
[2018-03-29 21:07] VITALS: BP 142/108
== END 2018-03-29 21:27 | disposition home or self-care (01) ==
LOC: D.ER 16:24
DX: M54.5 Low back pain (principal); M62.830 Muscle spasm of back

== ENCOUNTER 2018-05-23 14:11 | Emergency (ER) | payer MEDICARE ==
[~2018-05-23] VITALS: Ht 170.2 cm; Wt 100.0 kg
[2018-05-23] MEDS ORDERED: PRINIVIL10 MG PO (14:23)
[2018-05-23] MEDS ORDERED: COREG 3.1253.125 MG (14:27)
[2018-05-23 14:59] LABS: BASOPHILS 0.3 % (0-2); EOSINOPHILS 1.8 % (0-7); HEMATOCRIT 49.2 % (42.0-54.0); HEMOGLOBIN 16.3 g/dL (13.5-17.5); IMMATURE GRANULOCYTES 0.3 % (0-5); LYMPHOCYTES 18.8 % (15-50); MCH 29.4 pg (26.0-34.0); MCHC 33.1 g/dL (31.0-37.0); MCV 88.8 fL (80.0-100.0); MEAN PLATELET VOLUME 10.2 fL (7.4-10.4); MONOCYTES 9.8 % (2-11); PLATELET COUNT 267 10x3/uL (130-400); RBC 5.54 10x6/uL (4.20-6.10); WBC 9.9 10x3/uL (4.8-10.8)
[2018-05-23 15:12] LABS: APTT 24.3 SECONDS (22.8-39.4); INR 0.99 (0.85-1.17); PROTIME 12.6 SECONDS (11.6-15.0)
[2018-05-23 15:17] LABS: ALBUMIN 3.6 g/dL (3.4-5.0); ALKALINE PHOSPHATASE 67 U/L (46-116); ALT (SGPT) 31 U/L (10-68); BILIRUBIN - TOTAL 0.75 mg/dL (0.2-1.3); CALC OSMOLALITY 277 mosm/kg (275-300); CALCIUM 8.8 mg/dL (8.5-10.1); CARBON DIOXIDE 27.5 mmol/L (21.0-32.0); CHLORIDE - SERUM 102 mmol/L (98-107); CREATININE - SERUM 1.6 mg/dL (0.6-1.3); GLUCOSE 95 mg/dL (74-106); POTASSIUM - SERUM 4.2 mmol/L (3.5-5.1); PROTEIN - SERUM 7.4 g/dL (6.4-8.2); SODIUM 139 mmol/L (136-145); UREA NITROGEN 12 mg/dL (7-18); eGFR NON AFRICAN AMERICAN 50 mL/min (90-120)
[2018-05-23 15:26] LABS: CKMB 2.1 U/L (0.0-3.6); CREATINE KINASE 217 UL (21-232); MAGNESIUM - SERUM 1.9 mg/dL (1.8-2.4)
[2018-05-23 15:27] LABS: TROPONIN-I < 0.017 ng/mL (0.000-0.060)
[2018-05-23 15:57] VITALS: Ht 170.2 cm; Wt 100.0 kg
[2018-05-23 18:22] VITALS: BP 148/73
--- NOTE | 2018-05-24 14:51 | EC ---
PATIENT:DARIEL KIRKPATRICK DATE OF SERVICE: 05/23/18 SEX: M MEDICAL RECORD: [id number] DATE OF : 72 LOCATION:D.ER AGE OF PATIENT: 47 ADMISSION DATE: 05/23/18 REFERRING PHYSICIAN: INTERPRETING PHYSICIAN: ARA KENNY MD ECHOCARDIOGRAM REPORT ECHO CHARGES 4 ECHO COMPLETE Date: 05/23/18 CLINICAL DIAGNOSIS: CHEST PAIN ECHOCARDIOGRAPHIC MEASUREMENTS (adult normal given) AC root (d.<3.7cm) 4.0 cm LV Septum d (<1.2 cm> 1.5 cm Valve Excursion 1.6 cm LV Septum (systole) 1.8 cm Left Atria (s.<4.0cm> 4.3 cm LVPW d(<1.2cm) 1.5 cm RV (d.<2.3cm) 4.1 cm LVPW (sytole) 1.6 cm LV diastole(<5.6CM) 5.9 cm MV E-F(>70mm/sec) cm LV systole 4.6 cm LVOT Diameter 1.9 cm MV exc.(>10mm) 1.4 cm Est.ejection fraction (50-75%) % DOPPLER: LVIT cm/sec A cm/sec E 38.0 cm/sec LA cm/sec RVSP 20 mmHg LVOT 66 cm/sec AOP1/2T m/s Asc. Ao 84 cm/sec RVOT cm/sec RA cm/sec PA cm/sec AV Gradient Peak 2.82 mmHg AV Mean 1.45 mmHg AV Area 2.3 cm MV Gradient Peak 5.31 mmHg MV Mean 2.05 mmHg MV Area cm COMMENTS: Glass Frame Fitter: 2 CINDY ALLEN Clerk Of Works: 3 Dr. Meadows TAPE# PACS Pericardial Effusion N DATE OF SERVICE: Adequate 2D, color flow, spectral Doppler, and M-mode. LVH is present. LV internal dimension is mildly dilated at 5.9 cm. There is hypokinesis of the septal wall. Overall, LV function appears to be lower limits of normal and mildly reduced 45% to 50%. Aortic valve sclerosis without evidence of stenosis on Doppler interrogation. Left atrium minimally dilated at 5.3 cm. Mitral valve shows no prolapse. Mild MR. Right sided chambers grossly normal. Trace TR. ECHOCARDIOGRAM REPORT [id number] DARIEL KIRKPATRICK TRANSINT:[id number] Voice Confirmation ID: [id number] DOCUMENT ID: [id number] ARA KENNY MD at 1451 CC: [id number] DICTATION DATE: 05/24/18 1244 CAR RENTAL AGENT: 05/24/18 1249 DEP ER 05/23/18 [place] [id number]
== END 2018-05-23 18:23 | disposition home or self-care (01) ==
LOC: D.ER 14:11
PROVIDERS: Family Medicine
DX: I10 Essential (primary) hypertension (principal); I42.9 Cardiomyopathy, unspecified